=== PATIENT | male | born 1955 | race Caucasian/White ===

== ENCOUNTER 2017-12-08 21:24 | Inpatient (IN) | payer MEDICARE, OTHER ==
[~2017-12-08] VITALS: Ht 190.5 cm; Wt 179.9 kg
[2017-12-08] MEDS ORDERED: ASPIRIN 325 MG TABLET ONE (21:41)
[2017-12-08] MEDS ORDERED: SODIUM CHLORIDE 0.9% 500ML 500 ML IV ONE (21:44)
[2017-12-08 21:46] LABS: HEMATOCRIT 45.8 % (42-54); MEAN CORPUSCULAR HEMOGLOBIN 28.4 pg (27.0-33.0); MEAN CORPUSCULAR VOLUME 86.1 fL (79-99); NUCLEATED RED BLOOD CELLS 0.1 % (0.0-0.19); PLATELET COUNT (AUTO) 126 K/uL (130-400); RED BLOOD CELL COUNT(AUTO) 5.32 MIL/uL (4.50-6.20); RED CELL DISTRIBUTION WIDTH 14.3 % (11.0-15.5); WHITE BLOOD COUNT (AUTO) 17.4 K/uL (4.8-10.8)
[2017-12-08 21:57] LABS: CREATININE 0.9 mg/dL (0.5-1.5); INR 0.96 (0.85-1.15); PARTIAL THROMBOPLASTIN TIME 23.8 SEC (26.3-35.5); POTASSIUM 4.5 mmol/L (3.5-5.1); PROTHROMBIN TIME 10.1 SEC (9.6-11.6)
[2017-12-08] MEDS ORDERED: ACETAMINOPHEN EXTRA STRENGTH 500 MG TABLET ONE (21:59)
[2017-12-08] MEDS ORDERED: ZOSYN 3.375GM+NS 50ML 50 ML IV ONE (22:02)
[2017-12-08 22:11] LABS: ALBUMIN 3.3 g/dL (3.5-5.0); BILIRUBIN,TOTAL 0.5 mg/dL (0.2-1.0); CREATINE KINASE MB 0.9 ng/mL (0.5-3.6); TOTAL PROTEIN, SERUM 7.6 g/dL (6.0-8.3)
[2017-12-08 22:26] LABS: BAND NEUTROPHILS % (MANUAL) 4 % (0-2); EOSINOPHILS % (MANUAL) 2 % (1-6); LYMPHOCYTES % (MANUAL) 2 % (22-44); MAN.DIFF COMMENT-IMPRESSION MANUAL DIFFERENTIAL; MONOCYTES % (MANUAL) 5 % (2-9); SEGMENTED NEUTROPHILS % 87 % (40-70)
[2017-12-08 22:27] LABS: PLATELET MORPHOLOGY COMMENT SLIGHTLY DECREASED
[2017-12-08 22:51] LABS: BILIRUBIN,URINE Negative (NEGATIVE); COLOR,URINE Yellow (YELLOW); GLUCOSE, URINE (UA) Negative (NEGATIVE); KETONES,URINE Negative (NEGATIVE); LEUKOCYTE ESTERASE ,URINE Negative (NEGATIVE); NITRATE,URINE Negative (NEGATIVE); OCCULT BLOOD,URINE Negative (NEGATIVE); PH,URINE 5.5 (5.0-8.0); PROTEIN,URINE Negative (NEGATIVE)
[2017-12-08 22:52] LABS: APPEARANCE,URINE CLEAR (CLEAR)
[2017-12-09] MEDS ORDERED: VANCOMYCIN 1GM+NS 250ML 250 ML IV ONE (00:07)
[2017-12-09] MEDS ORDERED: SODIUM CHLORIDE 0.9% 500ML 500 ML IV ONE (00:22)
[2017-12-09] MEDS ORDERED: IPRATROPIUM/ALBUTEROL SULFATE 3 ML SOLUTION IH ONE ×5 (01:35→14:23)
[2017-12-09] MEDS ORDERED: LISI1TAB11 PO (02:30)
[2017-12-09] MEDS ORDERED: AMLO10TA2 PO (02:30)
[2017-12-09] MEDS ORDERED: ATOR10 PO (02:30)
[2017-12-09] MEDS ORDERED: METO-409 PO (02:30)
[2017-12-09 03:18] LABS: HEMATOCRIT 43.9 % (42-54); MEAN CORPUSCULAR HEMOGLOBIN 28.6 pg (27.0-33.0); MEAN CORPUSCULAR VOLUME 86.6 fL (79-99); NUCLEATED RED BLOOD CELLS 0.1 % (0.0-0.19); PLATELET COUNT (AUTO) 122 K/uL (130-400); RED BLOOD CELL COUNT(AUTO) 5.07 MIL/uL (4.50-6.20); WHITE BLOOD COUNT (AUTO) 19.9 K/uL (4.8-10.8)
[2017-12-09 03:28] LABS: POTASSIUM 3.5 mmol/L (3.5-5.1)
[2017-12-09 03:34] LABS: ALBUMIN 3.1 g/dL (3.5-5.0); BILIRUBIN,TOTAL 0.6 mg/dL (0.2-1.0)
[2017-12-09 03:40] LABS: B-TYPE NATRIURETIC PEPTIDE 259 pg/mL (0-100)
[2017-12-09 04:00] VITALS: BP 156/67
[2017-12-09] MEDS ORDERED: VANCOMYCIN PROTOCOL PER PHARMACY IV SCH ×2 (04:00→06:15)
[2017-12-09] MEDS ORDERED: VANCOMYCIN 500MG+NS 100ML 100 ML IV SCH (04:00)
[2017-12-09] MEDS ORDERED: PHARMACY COMMUNICATION MISC SCH (04:00)
[2017-12-09] MEDS ORDERED: VANCOMYCIN 1GM+NS 250ML 250 ML IV SCH ×2 (04:00→07:50)
[2017-12-09] MEDS: ACETAMINOPHEN 325 MG TAB PO PRN (04:22)
[2017-12-09] MEDS: ZOSYN 3.375GM+NS 50ML 50 ML IV SCH ×3 (04:22→20:31)
[2017-12-09] MEDS: FUROSEMIDE 10 MG/ML 4ML VIAL IVP SCH ×2 (06:14→20:32)
[2017-12-09 08:00] VITALS: BP 115/59
[2017-12-09] MEDS ORDERED: COMPOUND IV REFRIGERATED 1 EACH IVSOLN MISC PRN (08:00)
[2017-12-09] MEDS: FAMOTIDINE 20MG TAB 20 MG TAB PO SCH ×2 (08:53→20:29)
[2017-12-09 11:00] VITALS: BP 144/70
[2017-12-09 16:00] VITALS: BP 161/70
[2017-12-09] MEDS: IPRATROPIUM/ALBUTEROL SULFATE 3 ML SOLUTION IH SCH ×2 (18:06→21:56)
[2017-12-09 19:45] VITALS: BP 145/76
[2017-12-09] MEDS: FLUCONAZOLE 100 MG TAB PO SCH (20:29)
[2017-12-09] MEDS: VANCOMYCIN 2 GM in SODIUM CHLORIDE 0.9% 500ML 500 ML IV SCH (20:31)
[2017-12-09 23:44] VITALS: BP 153/101
[2017-12-10] MEDS: IPRATROPIUM/ALBUTEROL SULFATE 3 ML SOLUTION IH SCH ×6 (01:22→21:12)
[2017-12-10 03:15] VITALS: BP 149/122
[2017-12-10] MEDS: FUROSEMIDE 10 MG/ML 4ML VIAL IVP SCH ×2 (06:44→18:15)
[2017-12-10] MEDS: ZOSYN 3.375GM+NS 50ML 50 ML IV SCH ×3 (06:44→21:35)
[2017-12-10] MEDS: VANCOMYCIN 2 GM in SODIUM CHLORIDE 0.9% 500ML 500 ML IV SCH ×3 (06:44→21:35)
[2017-12-10 07:58] VITALS: BP 149/99
[2017-12-10] MEDS: FAMOTIDINE 20MG TAB 20 MG TAB PO SCH ×2 (09:38→21:34)
[2017-12-10 09:57] LABS: CREATININE 1.1 mg/dL (0.5-1.5); POTASSIUM 3.3 mmol/L (3.5-5.1)
[2017-12-10 12:00] VITALS: BP 119/64
[2017-12-10 16:00] VITALS: BP 156/80
[2017-12-10] MEDS: ACETAMINOPHEN 325 MG TAB PO PRN (18:19)
[2017-12-10] MEDS: FLUCONAZOLE 100 MG TAB PO SCH (18:19)
[2017-12-10 19:42] VITALS: BP 109/58
[2017-12-10] MEDS ORDERED: POTASSIUM CHLORIDE 20 MEQ ERTAB PO PRN (20:15)
[2017-12-10] MEDS ORDERED: POTASSIUM CHLORIDE 10% ELIXIR 20 MEQ/15 ML UDCUP PO PRN ×2 (20:15)
[2017-12-10] MEDS ORDERED: POTASSIUM CHLORIDE 20MEQ/100ML 100 ML IV PRN (20:15)
[2017-12-10] MEDS ORDERED: LIDOCAINE HCL-MPF 1% 2ML VIAL IVP PRN (20:15)
[2017-12-10] MEDS: ATORVASTATIN CALCIUM 10 MG TABLET PO SCH (21:34)
[2017-12-10] MEDS: METOPROLOL TARTRATE 50 MG TAB PO SCH (21:34)
[2017-12-10] MEDS: LISINOPRIL 20 MG TABLET PO SCH (21:34)
[2017-12-10 23:08] VITALS: BP 109/79
[2017-12-11] MEDS: IPRATROPIUM/ALBUTEROL SULFATE 3 ML SOLUTION IH SCH ×6 (01:25→21:39)
[2017-12-11 03:52] VITALS: BP 118/70
[2017-12-11] MEDS: FUROSEMIDE 10 MG/ML 4ML VIAL IVP SCH ×2 (05:30→18:22)
[2017-12-11] MEDS: POTASSIUM CHLORIDE 20 MEQ ERTAB PO PRN ×2 (05:32→18:33)
[2017-12-11] MEDS: VANCOMYCIN 2 GM in SODIUM CHLORIDE 0.9% 500ML 500 ML IV SCH ×2 (05:32→15:11)
[2017-12-11] MEDS: ZOSYN 3.375GM+NS 50ML 50 ML IV SCH ×3 (05:32→20:49)
[2017-12-11 08:00] VITALS: BP 152/87
[2017-12-11] MEDS: HYDROCHLOROTHIAZIDE 25 MG TABLET PO SCH ×2 (09:08→23:50)
[2017-12-11] MEDS: LISINOPRIL 20 MG TABLET PO SCH ×2 (09:08→23:50)
[2017-12-11] MEDS: AMLODIPINE BESYLATE 5 MG TAB PO SCH (09:08)
[2017-12-11] MEDS: METOPROLOL TARTRATE 50 MG TAB PO SCH ×2 (09:08→20:49)
[2017-12-11] MEDS: FAMOTIDINE 20MG TAB 20 MG TAB PO SCH ×2 (09:08→20:49)
[2017-12-11] MEDS: ENOXAPARIN SODIUM 40 MG/0.4 ML SYRINGE SQ SCH (09:09)
[2017-12-11 11:36] VITALS: BP 118/66
[2017-12-11 16:00] VITALS: BP 130/71
[2017-12-11] MEDS: FLUCONAZOLE 100 MG TAB PO SCH (18:22)
[2017-12-11 20:00] VITALS: BP 121/73
[2017-12-11] MEDS: ATORVASTATIN CALCIUM 10 MG TABLET PO SCH (20:49)
[2017-12-11 23:47] VITALS: BP 90/49
[2017-12-12] MEDS: VANCOMYCIN 2 GM in SODIUM CHLORIDE 0.9% 500ML 500 ML IV SCH ×2 (00:24→06:00)
[2017-12-12] MEDS: IPRATROPIUM/ALBUTEROL SULFATE 3 ML SOLUTION IH SCH ×3 (02:43→10:11)
[2017-12-12 03:39] VITALS: BP 158/76
[2017-12-12 04:30] LABS: HEMATOCRIT 39.1 % (42-54); MEAN CORPUSCULAR HEMOGLOBIN 28.4 pg (27.0-33.0); MEAN CORPUSCULAR HGB CONC 33.1 g/dL (32.0-36.0); MEAN CORPUSCULAR VOLUME 85.8 fL (79-99); PLATELET COUNT (AUTO) 114 K/uL (130-400); RED BLOOD CELL COUNT(AUTO) 4.56 MIL/uL (4.50-6.20); RED CELL DISTRIBUTION WIDTH 14.3 % (11.0-15.5); WHITE BLOOD COUNT (AUTO) 11.1 K/uL (4.8-10.8)
[2017-12-12 04:39] LABS: BAND NEUTROPHILS % (MANUAL) 15 % (0-2); LYMPHOCYTES % (MANUAL) 11 % (22-44); MAN.DIFF COMMENT-IMPRESSION MANUAL DIFFERENTIAL; MONOCYTES % (MANUAL) 9 % (2-9); PLATELET MORPHOLOGY COMMENT MARKED DECREASED; SEGMENTED NEUTROPHILS % 65 % (40-70)
[2017-12-12] MEDS: ZOSYN 3.375GM+NS 50ML 50 ML IV SCH (04:43)
[2017-12-12] MEDS: FUROSEMIDE 10 MG/ML 4ML VIAL IVP SCH ×2 (05:03→18:25)
[2017-12-12] MEDS: ACETAMINOPHEN 325 MG TAB PO PRN (06:34)
[2017-12-12 08:00] VITALS: BP 146/85
[2017-12-12] MEDS: POTASSIUM CHLORIDE 20 MEQ ERTAB PO PRN (08:02)
[2017-12-12] MEDS: METOPROLOL TARTRATE 50 MG TAB PO SCH ×2 (10:17→21:00)
[2017-12-12] MEDS: LISINOPRIL 20 MG TABLET PO SCH ×2 (10:17→21:00)
[2017-12-12] MEDS: FAMOTIDINE 20MG TAB 20 MG TAB PO SCH ×2 (10:17→21:39)
[2017-12-12] MEDS: AMLODIPINE BESYLATE 5 MG TAB PO SCH (10:17)
[2017-12-12] MEDS: HYDROCHLOROTHIAZIDE 25 MG TABLET PO SCH ×2 (10:18→21:00)
[2017-12-12] MEDS: ENOXAPARIN SODIUM 40 MG/0.4 ML SYRINGE SQ SCH (10:19)
[2017-12-12 11:21] VITALS: BP 128/71
[2017-12-12] MEDS ORDERED: CEFAZOLIN 2GM / 50 ML 50 ML IV SCH (11:30)
[2017-12-12] MEDS: CEFAZOLIN SODIUM 1 GM VIAL IVP SCH ×2 (13:31→21:40)
[2017-12-12 16:00] VITALS: BP_SYST 133; BP_SYST 143; BP_DIAS 76; BP_DIAS 89
[2017-12-12] MEDS ORDERED: IPRATROPIUM/ALBUTEROL SULFATE 3 ML SOLUTION IH PRN (16:00)
[2017-12-12] MEDS: FLUCONAZOLE 100 MG TAB PO SCH (18:25)
[2017-12-12 20:00] VITALS: BP 144/81
[2017-12-12] MEDS ORDERED: HONEY 1 APPL/ML TUBE TP SCH (20:00)
[2017-12-12] MEDS: ATORVASTATIN CALCIUM 10 MG TABLET PO SCH (21:39)
[2017-12-13] VITALS: BP 146/91
[2017-12-13 04:00] VITALS: BP 133/77
[2017-12-13] MEDS: CEFAZOLIN SODIUM 1 GM VIAL IVP SCH ×3 (06:48→22:41)
[2017-12-13] MEDS: FUROSEMIDE 10 MG/ML 4ML VIAL IVP SCH ×2 (06:48→18:37)
[2017-12-13] MEDS: METOPROLOL TARTRATE 50 MG TAB PO SCH ×2 (07:05→22:41)
[2017-12-13 09:11] VITALS: BP 136/84
[2017-12-13] MEDS: LISINOPRIL 20 MG TABLET PO SCH ×2 (09:12→22:41)
[2017-12-13] MEDS: AMLODIPINE BESYLATE 5 MG TAB PO SCH (09:12)
[2017-12-13] MEDS: FAMOTIDINE 20MG TAB 20 MG TAB PO SCH ×2 (09:12→22:41)
[2017-12-13] MEDS: HYDROCHLOROTHIAZIDE 25 MG TABLET PO SCH ×2 (09:12→22:42)
[2017-12-13] MEDS: ENOXAPARIN SODIUM 40 MG/0.4 ML SYRINGE SQ SCH (09:13)
[2017-12-13 11:44] VITALS: BP 150/84
[2017-12-13 15:34] VITALS: BP 125/72
[2017-12-13] MEDS: FLUCONAZOLE 100 MG TAB PO SCH (18:37)
[2017-12-13 19:00] VITALS: BP 122/87
[2017-12-13 20:54] LABS: MAGNESIUM 1.9 mg/dL (1.80-2.40)
[2017-12-13 21:02] LABS: POTASSIUM 2.5 mmol/L (3.5-5.1)
[2017-12-13] MEDS ORDERED: MAGNESIUM 2GM PREMIX 50ML 50 ML IV PRN (22:15)
[2017-12-13] MEDS: ATORVASTATIN CALCIUM 10 MG TABLET PO SCH (22:42)
[2017-12-13] MEDS: POTASSIUM CHLORIDE 20 MEQ ERTAB PO PRN (22:42)
[2017-12-13] MEDS: ACETAMINOPHEN 325 MG TAB PO PRN (22:47)
[2017-12-14] VITALS (7 sets, daily range): BP systolic 128–152; BP diastolic 71–91
[2017-12-14] MEDS: POTASSIUM CHLORIDE 20MEQ/100ML 100 ML IV PRN ×3 (00:27→23:20)
[2017-12-14] MEDS: LIDOCAINE HCL-MPF 1% 2ML VIAL IVP PRN ×3 (00:28→23:19)
[2017-12-14] MEDS: POTASSIUM CHLORIDE 20 MEQ ERTAB PO PRN ×6 (00:29→23:19)
[2017-12-14] MEDS ORDERED: METOPROLOL TARTRATE 1 MG/ML 5ML VIAL IV PRN (00:30)
[2017-12-14] MEDS: FUROSEMIDE 10 MG/ML 4ML VIAL IVP SCH ×2 (06:00→17:50)
[2017-12-14 06:06] LABS: CREATININE 1.3 mg/dL (0.5-1.5); MAGNESIUM 2.5 mg/dL (1.80-2.40)
[2017-12-14 06:09] LABS: POTASSIUM 2.7 mmol/L (3.5-5.1)
[2017-12-14] MEDS: CEFAZOLIN SODIUM 1 GM VIAL IVP SCH ×3 (06:33→23:17)
[2017-12-14] MEDS: HYDROCHLOROTHIAZIDE 25 MG TABLET PO SCH ×2 (08:24→23:18)
[2017-12-14] MEDS: METOPROLOL TARTRATE 50 MG TAB PO SCH ×2 (08:24→23:22)
[2017-12-14] MEDS: AMLODIPINE BESYLATE 5 MG TAB PO SCH (08:25)
[2017-12-14] MEDS: LISINOPRIL 20 MG TABLET PO SCH ×2 (08:25→23:18)
[2017-12-14] MEDS: FAMOTIDINE 20MG TAB 20 MG TAB PO SCH ×2 (08:25→23:18)
[2017-12-14] MEDS: ENOXAPARIN SODIUM 40 MG/0.4 ML SYRINGE SQ SCH (08:26)
[2017-12-14] MEDS: HONEY 1 APPL/ML TUBE TP SCH (09:00)
[2017-12-14] MEDS: FLUCONAZOLE 100 MG TAB PO SCH (17:51)
[2017-12-14] MEDS: ATORVASTATIN CALCIUM 10 MG TABLET PO SCH (23:17)
[2017-12-15 03:00] VITALS: BP 118/68
[2017-12-15] MEDS: FUROSEMIDE 10 MG/ML 4ML VIAL IVP SCH (06:00)
[2017-12-15] MEDS: CEFAZOLIN SODIUM 1 GM VIAL IVP SCH ×3 (06:57→22:00)
[2017-12-15 08:00] VITALS: BP 123/82
[2017-12-15] MEDS: METOPROLOL TARTRATE 50 MG TAB PO SCH ×2 (08:00→21:00)
[2017-12-15] MEDS: LISINOPRIL 20 MG TABLET PO SCH ×2 (08:00→21:00)
[2017-12-15] MEDS: FAMOTIDINE 20MG TAB 20 MG TAB PO SCH ×2 (08:00→21:00)
[2017-12-15] MEDS: AMLODIPINE BESYLATE 5 MG TAB PO SCH (08:00)
[2017-12-15] MEDS: HYDROCHLOROTHIAZIDE 25 MG TABLET PO SCH ×2 (08:00→21:00)
[2017-12-15] MEDS: POTASSIUM CHLORIDE 20 MEQ ERTAB PO PRN ×2 (08:01→12:15)
[2017-12-15] MEDS: ENOXAPARIN SODIUM 40 MG/0.4 ML SYRINGE SQ SCH (08:03)
[2017-12-15 11:34] VITALS: BP 120/72
[2017-12-15] MEDS: FUROSEMIDE 40 MG TABLET PO SCH (15:47)
[2017-12-15 16:00] VITALS: BP 111/57
[2017-12-15] MEDS: FLUCONAZOLE 100 MG TAB PO SCH (19:30)
[2017-12-15] MEDS: HONEY 1 APPL/ML TUBE TP SCH (19:31)
[2017-12-15 19:40] VITALS: BP 148/92
[2017-12-15] MEDS: ATORVASTATIN CALCIUM 10 MG TABLET PO SCH (21:00)
[2017-12-15 23:33] VITALS: BP 159/89
[2017-12-16 04:22] VITALS: BP 132/75
[2017-12-16 04:42] LABS: HEMATOCRIT 40.8 % (42-54); MEAN CORPUSCULAR HEMOGLOBIN 28.7 pg (27.0-33.0); MEAN CORPUSCULAR HGB CONC 33.4 g/dL (32.0-36.0); MEAN CORPUSCULAR VOLUME 85.9 fL (79-99); PLATELET COUNT (AUTO) 214 K/uL (130-400); RED BLOOD CELL COUNT(AUTO) 4.75 MIL/uL (4.50-6.20); RED CELL DISTRIBUTION WIDTH 14.4 % (11.0-15.5); WHITE BLOOD COUNT (AUTO) 8.5 K/uL (4.8-10.8)
[2017-12-16 04:58] LABS: ALBUMIN 2.3 g/dL (3.5-5.0); BILIRUBIN,TOTAL 0.5 mg/dL (0.2-1.0); CREATININE 1.2 mg/dL (0.5-1.5); MAGNESIUM 2.1 mg/dL (1.80-2.40); POTASSIUM 3.1 mmol/L (3.5-5.1); TOTAL PROTEIN, SERUM 7.3 g/dL (6.0-8.3)
[2017-12-16] MEDS: CEFAZOLIN SODIUM 1 GM VIAL IVP SCH ×3 (06:47→22:40)
[2017-12-16] MEDS: POTASSIUM CHLORIDE 20 MEQ ERTAB PO PRN ×3 (06:48→12:46)
[2017-12-16 08:00] VITALS: BP 128/70
[2017-12-16] MEDS: METOPROLOL TARTRATE 50 MG TAB PO SCH ×2 (09:45→22:40)
[2017-12-16] MEDS: AMLODIPINE BESYLATE 5 MG TAB PO SCH (09:45)
[2017-12-16] MEDS: LISINOPRIL 20 MG TABLET PO SCH ×2 (09:45→22:41)
[2017-12-16] MEDS: FAMOTIDINE 20MG TAB 20 MG TAB PO SCH ×2 (09:45→22:40)
[2017-12-16] MEDS: HYDROCHLOROTHIAZIDE 25 MG TABLET PO SCH ×2 (09:46→22:40)
[2017-12-16] MEDS: FUROSEMIDE 40 MG TABLET PO SCH ×2 (09:46→17:04)
[2017-12-16] MEDS: ENOXAPARIN SODIUM 40 MG/0.4 ML SYRINGE SQ SCH (09:47)
[2017-12-16] MEDS: HONEY 1 APPL/ML TUBE TP SCH (09:55)
[2017-12-16 12:00] VITALS: BP 117/73
[2017-12-16 16:00] VITALS: BP_SYST 134; BP_SYST 144; BP_DIAS 62; BP_DIAS 86
[2017-12-16] MEDS ORDERED: POTASSIUM CHLORIDE 20 MEQ ERTAB PO SCH (16:00)
[2017-12-16] MEDS: FLUCONAZOLE 100 MG TAB PO SCH (17:04)
[2017-12-16] MEDS: POTASSIUM CHLORIDE 20 MEQ ERTAB PO SCH (17:04)
[2017-12-16 20:00] VITALS: BP 144/90
[2017-12-16] MEDS: ATORVASTATIN CALCIUM 10 MG TABLET PO SCH (22:40)
[2017-12-17] VITALS (7 sets, daily range): BP systolic 98–134; BP diastolic 67–92
[2017-12-17 05:03] LABS: CREATININE 1.2 mg/dL (0.5-1.5); POTASSIUM 3.6 mmol/L (3.5-5.1)
[2017-12-17] MEDS: CEFAZOLIN SODIUM 1 GM VIAL IVP SCH ×3 (06:17→22:27)
[2017-12-17] MEDS: HYDROCHLOROTHIAZIDE 25 MG TABLET PO SCH ×2 (09:24→22:28)
[2017-12-17] MEDS: FUROSEMIDE 40 MG TABLET PO SCH ×2 (09:25→17:09)
[2017-12-17] MEDS: HONEY 1 APPL/ML TUBE TP SCH (09:25)
[2017-12-17] MEDS: FAMOTIDINE 20MG TAB 20 MG TAB PO SCH ×2 (09:26→22:27)
[2017-12-17] MEDS: POTASSIUM CHLORIDE 20 MEQ ERTAB PO SCH ×2 (09:26→22:28)
[2017-12-17] MEDS: METOPROLOL TARTRATE 50 MG TAB PO SCH ×2 (09:27→22:27)
[2017-12-17] MEDS: AMLODIPINE BESYLATE 5 MG TAB PO SCH (09:27)
[2017-12-17] MEDS: LISINOPRIL 20 MG TABLET PO SCH ×2 (09:27→22:27)
[2017-12-17] MEDS: ENOXAPARIN SODIUM 40 MG/0.4 ML SYRINGE SQ SCH (09:29)
[2017-12-17] MEDS: FLUCONAZOLE 100 MG TAB PO SCH (17:09)
[2017-12-17] MEDS: ATORVASTATIN CALCIUM 10 MG TABLET PO SCH (22:27)
[2017-12-18 04:00] VITALS: BP 134/78
[2017-12-18] MEDS: CEFAZOLIN SODIUM 1 GM VIAL IVP SCH ×3 (06:56→22:03)
[2017-12-18 08:04] VITALS: BP 122/72
[2017-12-18] MEDS: HYDROCHLOROTHIAZIDE 25 MG TABLET PO SCH ×2 (10:20→20:22)
[2017-12-18] MEDS: FAMOTIDINE 20MG TAB 20 MG TAB PO SCH ×2 (10:21→20:22)
[2017-12-18] MEDS: AMLODIPINE BESYLATE 5 MG TAB PO SCH (10:21)
[2017-12-18] MEDS: POTASSIUM CHLORIDE 20 MEQ ERTAB PO SCH ×2 (10:21→20:23)
[2017-12-18] MEDS: ENOXAPARIN SODIUM 40 MG/0.4 ML SYRINGE SQ SCH (10:22)
[2017-12-18] MEDS: FUROSEMIDE 40 MG TABLET PO SCH ×2 (10:22→17:27)
[2017-12-18] MEDS: LISINOPRIL 20 MG TABLET PO SCH ×2 (10:22→20:22)
[2017-12-18] MEDS: METOPROLOL TARTRATE 50 MG TAB PO SCH ×2 (10:24→20:22)
[2017-12-18] MEDS: HONEY 1 APPL/ML TUBE TP SCH (10:34)
[2017-12-18 11:30] VITALS: BP 131/85
[2017-12-18 16:49] VITALS: BP 121/73
[2017-12-18] MEDS: FLUCONAZOLE 100 MG TAB PO SCH (17:27)
[2017-12-18 19:00] VITALS: BP 132/83
[2017-12-18] MEDS: ATORVASTATIN CALCIUM 10 MG TABLET PO SCH (20:22)
[2017-12-18 23:00] VITALS: BP 137/71
[2017-12-19 03:00] VITALS: BP 110/36
[2017-12-19 04:39] LABS: CREATININE 1.2 mg/dL (0.5-1.5); POTASSIUM 4.4 mmol/L (3.5-5.1)
[2017-12-19] MEDS: CEFAZOLIN SODIUM 1 GM VIAL IVP SCH ×2 (05:16→13:46)
[2017-12-19 08:19] VITALS: BP 106/52
[2017-12-19] MEDS: ENOXAPARIN SODIUM 40 MG/0.4 ML SYRINGE SQ SCH (10:53)
[2017-12-19] MEDS: HYDROCHLOROTHIAZIDE 25 MG TABLET PO SCH ×2 (10:53→23:01)
[2017-12-19] MEDS: LISINOPRIL 20 MG TABLET PO SCH ×2 (10:55→23:03)
[2017-12-19] MEDS: METOPROLOL TARTRATE 50 MG TAB PO SCH ×2 (10:55→23:02)
[2017-12-19] MEDS: FUROSEMIDE 40 MG TABLET PO SCH ×2 (10:55→18:41)
[2017-12-19] MEDS: FAMOTIDINE 20MG TAB 20 MG TAB PO SCH ×2 (10:55→23:03)
[2017-12-19] MEDS: AMLODIPINE BESYLATE 5 MG TAB PO SCH (10:55)
[2017-12-19] MEDS: HONEY 1 APPL/ML TUBE TP SCH (11:05)
[2017-12-19] MEDS: POTASSIUM CHLORIDE 20 MEQ ERTAB PO SCH ×2 (11:06→23:02)
[2017-12-19 11:33] VITALS: BP 106/57
[2017-12-19 15:51] VITALS: BP 124/67
[2017-12-19] MEDS: FLUCONAZOLE 100 MG TAB PO SCH (18:41)
[2017-12-19 19:00] VITALS: BP 116/59
[2017-12-19 23:00] VITALS: BP 123/66
[2017-12-19] MEDS: ATORVASTATIN CALCIUM 10 MG TABLET PO SCH (23:02)
[2017-12-20 03:00] VITALS: BP 134/72
[2017-12-20] MEDS: CEFAZOLIN SODIUM 1 GM VIAL IVP SCH ×4 (05:59→21:38)
[2017-12-20 06:15] LABS: BASOPHILS % (AUTO) 0.9 % (0.0-5.0); EOSINOPHILS % (AUTO) 3.5 % (0.0-8.0); HEMATOCRIT 41.1 % (42-54); LYMPHOCYTES % (AUTO) 18.3 % (21.0-51.0); MEAN CORPUSCULAR HEMOGLOBIN 28.6 pg (27.0-33.0); MEAN CORPUSCULAR HGB CONC 33.2 g/dL (32.0-36.0); MEAN CORPUSCULAR VOLUME 85.9 fL (79-99); MONOCYTES % (AUTO) 10.9 % (3.0-13.0); NEUTROPHILS % (AUTO) 66.4 % (40.0-77.0); PLATELET COUNT (AUTO) 248 K/uL (130-400); RED BLOOD CELL COUNT(AUTO) 4.78 MIL/uL (4.50-6.20); RED CELL DISTRIBUTION WIDTH 14.3 % (11.0-15.5); WHITE BLOOD COUNT (AUTO) 7.2 K/uL (4.8-10.8)
[2017-12-20 06:25] LABS: CREATININE 1.3 mg/dL (0.5-1.5); MAGNESIUM 2.3 mg/dL (1.80-2.40); POTASSIUM 4.5 mmol/L (3.5-5.1)
[2017-12-20 08:00] VITALS: BP 118/69
[2017-12-20] MEDS: FAMOTIDINE 20MG TAB 20 MG TAB PO SCH ×2 (09:38→21:39)
[2017-12-20] MEDS: METOPROLOL TARTRATE 50 MG TAB PO SCH ×2 (09:39→21:00)
[2017-12-20] MEDS: POTASSIUM CHLORIDE 20 MEQ ERTAB PO SCH ×2 (09:40→21:40)
[2017-12-20] MEDS: FUROSEMIDE 40 MG TABLET PO SCH ×2 (09:40→17:28)
[2017-12-20] MEDS: LISINOPRIL 20 MG TABLET PO SCH ×2 (09:42→21:39)
[2017-12-20] MEDS: AMLODIPINE BESYLATE 5 MG TAB PO SCH (09:42)
[2017-12-20] MEDS: HYDROCHLOROTHIAZIDE 25 MG TABLET PO SCH ×2 (09:45→21:00)
[2017-12-20] MEDS: ENOXAPARIN SODIUM 40 MG/0.4 ML SYRINGE SQ SCH (09:45)
[2017-12-20] MEDS: HONEY 1 APPL/ML TUBE TP SCH (09:51)
[2017-12-20 11:00] VITALS: BP 110/72
[2017-12-20 16:00] VITALS: BP 144/57
[2017-12-20] MEDS: FLUCONAZOLE 100 MG TAB PO SCH (17:28)
[2017-12-20 20:00] VITALS: BP 118/70
[2017-12-20] MEDS: ATORVASTATIN CALCIUM 10 MG TABLET PO SCH (21:39)
[2017-12-20 23:30] VITALS: BP 136/76
[2017-12-21 03:12] VITALS: BP 106/69
[2017-12-21] MEDS: CEFAZOLIN SODIUM 1 GM VIAL IVP SCH ×3 (06:55→23:01)
[2017-12-21 07:08] LABS: BASOPHILS % (AUTO) 0.7 % (0.0-5.0); EOSINOPHILS % (AUTO) 3.2 % (0.0-8.0); HEMATOCRIT 42.1 % (42-54); LYMPHOCYTES % (AUTO) 15.3 % (21.0-51.0); MEAN CORPUSCULAR HEMOGLOBIN 28.6 pg (27.0-33.0); MEAN CORPUSCULAR HGB CONC 33.4 g/dL (32.0-36.0); MEAN CORPUSCULAR VOLUME 85.6 fL (79-99); MONOCYTES % (AUTO) 8.3 % (3.0-13.0); NEUTROPHILS % (AUTO) 72.5 % (40.0-77.0); NUCLEATED RED BLOOD CELLS 0.1 % (0.0-0.19); PLATELET COUNT (AUTO) 274 K/uL (130-400); RED BLOOD CELL COUNT(AUTO) 4.92 MIL/uL (4.50-6.20); RED CELL DISTRIBUTION WIDTH 14.5 % (11.0-15.5); WHITE BLOOD COUNT (AUTO) 7.4 K/uL (4.8-10.8)
[2017-12-21 07:52] LABS: CREATININE 1.3 mg/dL (0.5-1.5); POTASSIUM 4.6 mmol/L (3.5-5.1)
[2017-12-21 08:00] VITALS: BP 124/57
[2017-12-21] MEDS: LISINOPRIL 20 MG TABLET PO SCH ×2 (09:00→23:00)
[2017-12-21 11:34] VITALS: BP 112/70
[2017-12-21] MEDS: HYDROCHLOROTHIAZIDE 25 MG TABLET PO SCH ×2 (13:15→21:00)
[2017-12-21] MEDS: POTASSIUM CHLORIDE 20 MEQ ERTAB PO SCH ×2 (13:16→23:00)
[2017-12-21] MEDS: FAMOTIDINE 20MG TAB 20 MG TAB PO SCH ×2 (13:16→23:01)
[2017-12-21] MEDS: FUROSEMIDE 40 MG TABLET PO SCH ×2 (13:17→18:59)
[2017-12-21] MEDS: AMLODIPINE BESYLATE 5 MG TAB PO SCH (13:17)
[2017-12-21] MEDS: METOPROLOL TARTRATE 50 MG TAB PO SCH ×2 (13:17→21:00)
[2017-12-21] MEDS: ENOXAPARIN SODIUM 40 MG/0.4 ML SYRINGE SQ SCH (13:20)
[2017-12-21] MEDS: HONEY 1 APPL/ML TUBE TP SCH (13:20)
[2017-12-21 16:00] VITALS: BP 104/51
[2017-12-21] MEDS: FLUCONAZOLE 100 MG TAB PO SCH (18:59)
[2017-12-21 19:00] VITALS: BP 112/62
[2017-12-21 23:00] VITALS: BP 133/67
[2017-12-21] MEDS: ATORVASTATIN CALCIUM 10 MG TABLET PO SCH (23:00)
[2017-12-21] MEDS: ACETAMINOPHEN 325 MG TAB PO PRN (23:02)
[2017-12-22 03:00] VITALS: BP 131/92
[2017-12-22 04:49] LABS: HEMATOCRIT 39.8 % (42-54); LYMPHOCYTES % (AUTO) 21.9 % (21.0-51.0); MEAN CORPUSCULAR HEMOGLOBIN 28.5 pg (27.0-33.0); MEAN CORPUSCULAR HGB CONC 33.3 g/dL (32.0-36.0); MEAN CORPUSCULAR VOLUME 85.7 fL (79-99); MONOCYTES % (AUTO) 11.3 % (3.0-13.0); NEUTROPHILS % (AUTO) 62.8 % (40.0-77.0); PLATELET COUNT (AUTO) 253 K/uL (130-400); RED BLOOD CELL COUNT(AUTO) 4.65 MIL/uL (4.50-6.20); RED CELL DISTRIBUTION WIDTH 14.2 % (11.0-15.5); WHITE BLOOD COUNT (AUTO) 6.9 K/uL (4.8-10.8)
[2017-12-22 05:02] LABS: CREATININE 1.5 mg/dL (0.5-1.5); POTASSIUM 4.5 mmol/L (3.5-5.1)
[2017-12-22] MEDS: CEFAZOLIN SODIUM 1 GM VIAL IVP SCH ×2 (06:43→16:07)
[2017-12-22 08:00] VITALS: BP 108/65
[2017-12-22] MEDS: LISINOPRIL 20 MG TABLET PO SCH (09:00)
[2017-12-22] MEDS: AMLODIPINE BESYLATE 5 MG TAB PO SCH (09:00)
[2017-12-22] MEDS: HYDROCHLOROTHIAZIDE 25 MG TABLET PO SCH (11:16)
[2017-12-22] MEDS: FUROSEMIDE 40 MG TABLET PO SCH ×2 (11:20→16:07)
[2017-12-22] MEDS: FAMOTIDINE 20MG TAB 20 MG TAB PO SCH (11:22)
[2017-12-22] MEDS: ENOXAPARIN SODIUM 40 MG/0.4 ML SYRINGE SQ SCH (11:30)
[2017-12-22] MEDS: HONEY 1 APPL/ML TUBE TP SCH (11:31)
[2017-12-22] MEDS: METOPROLOL TARTRATE 50 MG TAB PO SCH (11:45)
[2017-12-22] MEDS: POTASSIUM CHLORIDE 20 MEQ ERTAB PO SCH (11:46)
[2017-12-22 12:00] VITALS: BP 120/82
[2017-12-22 16:00] VITALS: BP 129/68
[2017-12-22] MEDS: FLUCONAZOLE 100 MG TAB PO SCH (16:08)
== END 2017-12-22 19:05 | DRG 871 ==
LOC: EDH 21:24 → EDHIP 23:54 → 3BH 12-09 02:06
PROVIDERS: ADMIT Internal Medicine Nephrology; ATTEND Internal Medicine Nephrology
DX: A41.9 Sepsis, unspecified organism (principal); I50.33 Acute on chronic diastolic (congestive) heart failure; E66.01 Morbid (severe) obesity due to excess calories; D69.6 Thrombocytopenia, unspecified; Z68.42 Body mass index [BMI] 45.0-49.9, adult; L03.116 Cellulitis of left lower limb; B35.9 Dermatophytosis, unspecified; I11.0 Hypertensive heart disease with heart failure; I89.0 Lymphedema, not elsewhere classified; B95.61 Methicillin susceptible Staphylococcus aureus infection as the cause of diseases classified elsewhere; B96.89 Other specified bacterial agents as the cause of diseases classified elsewhere; E78.5 Hyperlipidemia, unspecified; E87.6 Hypokalemia; I25.10 Atherosclerotic heart disease of native coronary artery without angina pectoris; B96.4 Proteus (mirabilis) (morganii) as the cause of diseases classified elsewhere; B95.4 Other streptococcus as the cause of diseases classified elsewhere; I87.2 Venous insufficiency (chronic) (peripheral); S80.822A Blister (nonthermal), left lower leg, initial encounter; X58.XXXA Exposure to other specified factors, initial encounter; Y93.89 Activity, other specified; Y92.89 Other specified places as the place of occurrence of the external cause; Y99.8 Other external cause status; Z91.19 Patient's noncompliance with other medical treatment and regimen; Z95.1 Presence of aortocoronary bypass graft; Z87.891 Personal history of nicotine dependence; Z86.73 Personal history of transient ischemic attack (TIA), and cerebral infarction without residual deficits; Z83.3 Family history of diabetes mellitus; Z82.49 Family history of ischemic heart disease and other diseases of the circulatory system
CPT/HCPCS: 36415; 71045; 80048; 80053; 80202; 81003; 82550; 82553; 83605; 83735; 83874; 83880; 84132; 84484; 85025; 85027; 85610; 85651; 85730; 87040; 87070; 87076; 87077; 87088; 87186; 87804; 93005; 93970; 94640; 94664; A4218; J0690; J1650; J1940; J2543; J3370; J3475; J3480; J3490; J7040

== ENCOUNTER 2020-10-19 11:33 | Emergency (ER) | payer MEDICARE ==
[~2020-10-19 11:33] MED LIST: AMLO-258 PO; ATOR10 PO; CLIN300C10 PO; HYDR25TA PO; METO-409 PO
[2020-10-19 12:49] LABS: BASOPHILS % (AUTO) 0.5 % (0.0-5.0); EOSINOPHILS % (AUTO) 5.8 % (0.0-8.0); HEMATOCRIT 46.6 % (42-54); LYMPHOCYTES % (AUTO) 6.8 % (21.0-51.0); MEAN CORPUSCULAR HEMOGLOBIN 26.2 pg (27.0-33.0); MEAN CORPUSCULAR HGB CONC 30.3 g/dL (32.0-36.0); MEAN CORPUSCULAR VOLUME 86.6 fL (79-99); MONOCYTES % (AUTO) 7.1 % (3.0-13.0); NEUTROPHILS % (AUTO) 79.5 % (40.0-77.0); PLATELET COUNT (AUTO) 177 K/uL (130-400); RED BLOOD CELL COUNT(AUTO) 5.38 MIL/uL (4.50-6.20); RED CELL DISTRIBUTION WIDTH 14.6 % (11.0-15.5); WHITE BLOOD COUNT (AUTO) 8.8 K/uL (4.8-10.8)
[2020-10-19 13:06] LABS: CREATININE 1.1 mg/dL (0.5-1.5); POTASSIUM 3.8 mmol/L (3.5-5.1)
[2020-10-19 13:11] LABS: B-TYPE NATRIURETIC PEPTIDE 86 pg/mL (0-100)
[2020-10-19 13:13] LABS: ALBUMIN 3.1 g/dL (3.5-5.0); BILIRUBIN,TOTAL 0.6 mg/dL (0.2-1.0); TOTAL PROTEIN, SERUM 7.8 g/dL (6.0-8.3)
[2020-10-19] MEDS ORDERED: KETOROLAC TROMETHAMINE 30MG/ML ONE (14:18)
== END 2020-10-19 14:53 | disposition home or self-care (01) ==
LOC: EDH 11:33
DX: M79.672 Pain in left foot (principal); M79.671 Pain in right foot; R60.0 Localized edema; J44.9 Chronic obstructive pulmonary disease, unspecified; I10 Essential (primary) hypertension
CPT/HCPCS: 36415; 71045; 73630 ×2; 80053; 83880; 84484; 85025; 93005; 96374; 99285; J1885

== ENCOUNTER 2020-10-27 04:24 | Inpatient (IN) | payer MEDICARE ==
[~2020-10-27] VITALS: Ht 190.5 cm; Wt 216.2 kg
[2020-10-27] VITALS (24 sets, daily range): BP systolic 96–141; BP diastolic 38–85
[~2020-10-27 04:24] MED LIST changes: +CLIN-141 PO; -CLIN300C10 PO
[2020-10-27 04:47] LABS: BASOPHILS % (AUTO) 0.3 % (0.0-5.0); EOSINOPHILS % (AUTO) 0.2 % (0.0-8.0); HEMATOCRIT 42.2 % (42-54); LYMPHOCYTES % (AUTO) 1.8 % (21.0-51.0); MEAN CORPUSCULAR HEMOGLOBIN 26.5 pg (27.0-33.0); MEAN CORPUSCULAR VOLUME 85.3 fL (79-99); NEUTROPHILS % (AUTO) 90.9 % (40.0-77.0); PLATELET COUNT (AUTO) 153 K/uL (130-400); RED BLOOD CELL COUNT(AUTO) 4.95 MIL/uL (4.50-6.20); RED CELL DISTRIBUTION WIDTH 14.6 % (11.0-15.5)
[2020-10-27] MEDS ORDERED: IBUPROFEN 600 MG TABLET ONE (04:51)
[2020-10-27 04:56] LABS: CARBON DIOXIDE 28 mmol/L (21-32); CHLORIDE 100 mmol/L (101-111); CREATININE 1.2 mg/dL (0.5-1.5); GLOMERULAR FILTR. RATE CALC 64 mL/min (>60); GLUCOSE,RANDOM 157 mg/dL (70-105); POTASSIUM 4.4 mmol/L (3.5-5.1); SODIUM SERUM 138 mmol/L (136-145); UREA NITROGEN, BLOOD 18 mg/dL (7-18)
[2020-10-27 05:01] LABS: INR 1.1 (0.85-1.15); PROTHROMBIN TIME 11.9 SEC (9.6-11.6)
[2020-10-27 05:02] LABS: PARTIAL THROMBOPLASTIN TIME 27.6 SEC (26.3-35.5)
[2020-10-27 05:27] LABS: ALANINE AMINOTRANSFERASE 16 U/L (12-78); ALBUMIN 2.8 g/dL (3.5-5.0); ASPARTATE AMINOTRANSFERASE 18 U/L (10-37); BILIRUBIN,TOTAL 0.4 mg/dL (0.2-1.0); CREATINE KINASE, TOTAL 78 U/L (21-232); MYOGLOBIN 240 ng/mL (10-92); TOTAL PROTEIN, SERUM 6.9 g/dL (6.0-8.3); TROPONIN I < 0.04 ng/mL (0.00-0.06)
[2020-10-27] MEDS ORDERED: VANCOMYCIN 1G/250ML KIT 250 ML IV ONE ×2 (05:28→15:37)
[2020-10-27] MEDS ORDERED: GENTAMICIN SULFATE 80 MG/2 ML VIAL ONE (05:28)
[2020-10-27] MEDS ORDERED: 0.9%NACL 100ML 100 ML IV ONE (05:29)
[2020-10-27] MEDS ORDERED: VANCOMYCIN PROTOCOL PER PHARMACY IV SCH (08:15)
[2020-10-27 08:35] LABS: APPEARANCE,URINE Clear (CLEAR); BILIRUBIN,URINE Negative (NEGATIVE); COLOR,URINE Dark Yellow (YELLOW); GLUCOSE, URINE (UA) Negative (NEGATIVE); KETONES,URINE Trace mg/dL (NEGATIVE); LEUKOCYTE ESTERASE ,URINE Trace (NEGATIVE); NITRATE,URINE Negative (NEGATIVE); OCCULT BLOOD,URINE Negative (NEGATIVE); PROTEIN,URINE POS 1+ mg/dL (NEGATIVE)
[2020-10-27] MEDS: ASPIRIN 81MG CHEW TAB PO SCH (09:00)
[2020-10-27 09:04] LABS: RBC,URINE 0-1 /HPF (0-1)
[2020-10-27 09:05] LABS: BACTERIA,URINE Few /HPF (None Seen); SQUAMOUS EPITHELIAL CELL,UR Rare /HPF (0-2)
[2020-10-27] MEDS ORDERED: NOREPINEPHRIN 4MG/NS 250ML 250 ML IV PRN (11:00)
[2020-10-27] MEDS ORDERED: ACETAMINOPHEN 650 MG SUPPOSITORY RC PRN (11:00)
[2020-10-27] MEDS ORDERED: ONDANSETRON 4MG INJ IVP PRN (11:00)
[2020-10-27] MEDS ORDERED: ACETAMINOPHEN 325 MG TAB PO PRN (11:00)
[2020-10-27 12:09] LABS: CREATINE KINASE, TOTAL 109 U/L (21-232); MYOGLOBIN 448 ng/mL (10-92); TROPONIN I < 0.04 ng/mL (0.00-0.06)
[2020-10-27] MEDS ORDERED: ZOSYN 3.375GM+NS 50ML 50 ML IV ONE (12:31)
[2020-10-27 12:43] LABS: HEMOGLOBIN A1C 7.1 % (4.0-6.0)
[2020-10-27] MEDS ORDERED: PHARMACY COMMUNICATION MISC SCH (12:45)
[2020-10-27] MEDS ORDERED: COMPOUND IV REFRIGERATED 1 EACH IVSOLN MISC PRN (14:45)
[2020-10-27 15:47] LABS: CREATINE KINASE, TOTAL 159 U/L (21-232); MYOGLOBIN 344 ng/mL (10-92); TROPONIN I < 0.04 ng/mL (0.00-0.06)
[2020-10-27] MEDS: FLUCONAZOLE 400 MG/NS 200 ML 200 ML IV SCH (16:04)
[2020-10-27] MEDS: VANCOMYCIN 1G 1.75 GM in 0.9% NACL 250ML 250 ML IV SCH ×2 (16:04→20:08)
[2020-10-27] MEDS: ZOSYN 3.375GM+NS 50ML 50 ML IV SCH (20:48)
[2020-10-27 21:52] LABS: CREATINE KINASE, TOTAL 173 U/L (21-232); MYOGLOBIN 191 ng/mL (10-92); TROPONIN I < 0.04 ng/mL (0.00-0.06)
[2020-10-27] MEDS: FUROSEMIDE 20MG VIAL IV SCH (23:57)
[2020-10-28] VITALS (18 sets, daily range): BP systolic 99–147; BP diastolic 57–97
[2020-10-28 03:50] LABS: BASOPHILS % (AUTO) 0.3 % (0.0-5.0); EOSINOPHILS % (AUTO) 1.2 % (0.0-8.0); HEMATOCRIT 41.9 % (42-54); LYMPHOCYTES % (AUTO) 4.2 % (21.0-51.0); MEAN CORPUSCULAR HEMOGLOBIN 25.9 pg (27.0-33.0); MEAN CORPUSCULAR HGB CONC 29.6 g/dL (32.0-36.0); MEAN CORPUSCULAR VOLUME 87.5 fL (79-99); MONOCYTES % (AUTO) 7.3 % (3.0-13.0); NEUTROPHILS % (AUTO) 86.7 % (40.0-77.0); PLATELET COUNT (AUTO) 135 K/uL (130-400); RED BLOOD CELL COUNT(AUTO) 4.79 MIL/uL (4.50-6.20); RED CELL DISTRIBUTION WIDTH 15.1 % (11.0-15.5); WHITE BLOOD COUNT (AUTO) 11.8 K/uL (4.8-10.8)
[2020-10-28 04:03] LABS: CREATININE 1.2 mg/dL (0.5-1.5); PHOSPHORUS 3.5 mg/dL (2.5-4.9)
[2020-10-28] MEDS: ZOSYN 3.375GM+NS 50ML 50 ML IV SCH ×3 (04:56→21:36)
[2020-10-28] MEDS: VANCOMYCIN 1GM+NS 250ML IV SCH ×2 (06:07→16:57)
[2020-10-28] MEDS ORDERED: METOPROLOL TARTRATE 1 MG/ML 5ML VIAL IV PRN (07:15)
[2020-10-28] MEDS: ASPIRIN 81MG CHEW TAB PO SCH (08:20)
[2020-10-28] MEDS: METOPROLOL TARTRATE 50 MG TAB PO SCH ×2 (08:22→21:36)
[2020-10-28] MEDS: POLYETHYLENE GLYCOL 3350 17 GM POWD.PACK PO SCH (08:23)
[2020-10-28] MEDS ORDERED: ENOXAPARIN SODIUM 40 MG/0.4 ML SYRINGE SQ SCH (09:00)
[2020-10-28] MEDS ORDERED: ASPIRIN 81MG CHEW TAB PO SCH (09:00)
[2020-10-28] MEDS: FUROSEMIDE 20MG VIAL IV SCH ×2 (10:00→21:37)
[2020-10-28] MEDS: FLUCONAZOLE 400 MG/NS 200 ML 200 ML IV SCH (15:59)
[2020-10-28] MEDS: APIXABAN 5 MG TABLET PO SCH (21:36)
[2020-10-29] MEDS ORDERED: TEMAZEPAM 7.5 MG CAPSULE PO ONE (00:36)
[2020-10-29 04:00] VITALS: BP 160/82
[2020-10-29 05:02] LABS: HEMATOCRIT 42.6 % (42-54); MEAN CORPUSCULAR HEMOGLOBIN 26.5 pg (27.0-33.0); MEAN CORPUSCULAR HGB CONC 30.3 g/dL (32.0-36.0); MEAN CORPUSCULAR VOLUME 87.5 fL (79-99); PLATELET COUNT (AUTO) 127 K/uL (130-400); RED BLOOD CELL COUNT(AUTO) 4.87 MIL/uL (4.50-6.20); RED CELL DISTRIBUTION WIDTH 14.8 % (11.0-15.5); WHITE BLOOD COUNT (AUTO) 8.6 K/uL (4.8-10.8)
[2020-10-29] MEDS: ZOSYN 3.375GM+NS 50ML 50 ML IV SCH ×3 (05:21→21:28)
[2020-10-29 05:22] LABS: BASOPHILS % (AUTO) 0.5 % (0.0-5.0); EOSINOPHILS % (AUTO) 4.2 % (0.0-8.0); LYMPHOCYTES % (AUTO) 7.8 % (21.0-51.0); MONOCYTES % (AUTO) 9.6 % (3.0-13.0); NEUTROPHILS % (AUTO) 77.6 % (40.0-77.0)
[2020-10-29 05:30] LABS: CREATININE 0.9 mg/dL (0.5-1.5); POTASSIUM 3.8 mmol/L (3.5-5.1)
[2020-10-29 07:00] VITALS: BP 142/95
[2020-10-29] MEDS ORDERED: VANCOMYCIN 1G 1.75 GM in 0.9% NACL 250ML 250 ML IV SCH (09:31)
[2020-10-29] MEDS: APIXABAN 5 MG TABLET PO SCH ×2 (09:55→21:28)
[2020-10-29] MEDS: ASPIRIN 81MG CHEW TAB PO SCH (09:55)
[2020-10-29] MEDS: METOPROLOL TARTRATE 50 MG TAB PO SCH ×2 (09:56→21:28)
[2020-10-29] MEDS: FUROSEMIDE 20MG VIAL IV SCH ×2 (09:56→21:28)
[2020-10-29] MEDS: POLYETHYLENE GLYCOL 3350 17 GM POWD.PACK PO SCH (09:57)
[2020-10-29 11:00] VITALS: BP 155/88
[2020-10-29] MEDS: FLUCONAZOLE 400 MG/NS 200 ML 200 ML IV SCH (14:57)
[2020-10-29 16:00] VITALS: BP 162/96
[2020-10-29 17:22] LABS: ABG BASE EXCESS 4.3 mmol/L (-2.0-3.0); ABG HCO3 33.5 mmol/L (21.0-28.0); ABG OXYGEN SATURATION 92.6 % (95.0-99.0); ABG PCO2 73 mmHg (35-48)
[2020-10-29 19:19] VITALS: BP 155/94
[2020-10-29] MEDS: VANCOMYCIN 1G 1.25 GM in 0.9% NACL 250ML 250 ML IV SCH (22:00)
[2020-10-29 23:29] VITALS: BP 151/102
[2020-10-30] VITALS (30 sets, daily range): BP systolic 123–163; BP diastolic 72–116
[2020-10-30] MEDS: TEMAZEPAM 7.5 MG CAPSULE PO PRN ×2 (01:16→23:56)
[2020-10-30 01:27] LABS: ABG BASE EXCESS 3.5 mmol/L (-2.0-3.0); ABG HCO3 33.7 mmol/L (21.0-28.0); ABG PCO2 79 mmHg (35-48)
[2020-10-30 01:51] LABS: ABG BASE EXCESS 4.1 mmol/L (-2.0-3.0); ABG HCO3 34.3 mmol/L (21.0-28.0); ABG OXYGEN SATURATION 85.2 % (95.0-99.0); ABG PCO2 80 mmHg (35-48)
[2020-10-30] MEDS ORDERED: IPRATROPIUM/ALBUTEROL SULFATE 3 ML SOLUTION IH STA (02:20)
[2020-10-30] MEDS ORDERED: ZIPRASIDONE MESYLATE 20 MG/VIAL IM ONE (02:23)
[2020-10-30] MEDS ORDERED: IPRATROPIUM/ALBUTEROL SULFATE 3 ML SOLUTION IH ONE ×4 (02:35→11:20)
[2020-10-30] MEDS ORDERED: SOLU-MEDROL 125MG VIAL IVP STA (03:00)
[2020-10-30 04:44] LABS: BASOPHILS % (AUTO) 0.3 % (0.0-5.0); EOSINOPHILS % (AUTO) 0.3 % (0.0-8.0); HEMATOCRIT 46.9 % (42-54); LYMPHOCYTES % (AUTO) 5.1 % (21.0-51.0); MEAN CORPUSCULAR HEMOGLOBIN 26.3 pg (27.0-33.0); MEAN CORPUSCULAR HGB CONC 30.3 g/dL (32.0-36.0); MONOCYTES % (AUTO) 7.3 % (3.0-13.0); PLATELET COUNT (AUTO) 135 K/uL (130-400); RED BLOOD CELL COUNT(AUTO) 5.39 MIL/uL (4.50-6.20); RED CELL DISTRIBUTION WIDTH 14.4 % (11.0-15.5); WHITE BLOOD COUNT (AUTO) 11.3 K/uL (4.8-10.8)
[2020-10-30 04:52] LABS: CREATININE 0.9 mg/dL (0.5-1.5)
[2020-10-30 05:31] LABS: ABG OXYGEN SATURATION 95.4 % (95.0-99.0); ABG PCO2 78 mmHg (35-48)
[2020-10-30] MEDS: ZOSYN 3.375GM+NS 50ML 50 ML IV SCH ×3 (05:52→20:43)
[2020-10-30] MEDS: VANCOMYCIN 1G 1.25 GM in 0.9% NACL 250ML 250 ML IV SCH ×3 (07:45→22:08)
[2020-10-30] MEDS: METOPROLOL TARTRATE 50 MG TAB PO SCH ×2 (07:46→20:44)
[2020-10-30] MEDS: POLYETHYLENE GLYCOL 3350 17 GM POWD.PACK PO SCH (07:46)
[2020-10-30] MEDS: APIXABAN 5 MG TABLET PO SCH ×2 (07:46→20:44)
[2020-10-30] MEDS: FUROSEMIDE 20MG VIAL IV SCH ×2 (09:10→22:06)
[2020-10-30] MEDS: TRYPSIN/BALSAM PERU/CASTOR OIL OINT 60GM TUBE TP SCH ×2 (12:30→20:43)
[2020-10-30 12:55] LABS: ABG BASE EXCESS 5.2 mmol/L (-2.0-3.0); ABG HCO3 34.1 mmol/L (21.0-28.0); ABG OXYGEN SATURATION 92.4 % (95.0-99.0); ABG PCO2 70 mmHg (35-48)
[2020-10-30] MEDS: FLUCONAZOLE 400 MG/NS 200 ML 200 ML IV SCH (14:02)
[2020-10-30] MEDS ORDERED: PERFLUTREN PROTEIN-A MICROSPHR 0.22 MG/ML VIAL IV ONE (16:00)
[2020-10-31] VITALS (33 sets, daily range): BP systolic 99–162; BP diastolic 62–110
[2020-10-31 04:04] LABS: EOSINOPHILS % (AUTO) 2.6 % (0.0-8.0); LYMPHOCYTES % (AUTO) 6.8 % (21.0-51.0); MEAN CORPUSCULAR HEMOGLOBIN 25.7 pg (27.0-33.0); MEAN CORPUSCULAR HGB CONC 29.1 g/dL (32.0-36.0); MONOCYTES % (AUTO) 10.6 % (3.0-13.0); NEUTROPHILS % (AUTO) 79.1 % (40.0-77.0); PLATELET COUNT (AUTO) 146 K/uL (130-400); RED BLOOD CELL COUNT(AUTO) 5.34 MIL/uL (4.50-6.20); RED CELL DISTRIBUTION WIDTH 14.5 % (11.0-15.5); WHITE BLOOD COUNT (AUTO) 8.3 K/uL (4.8-10.8)
[2020-10-31 04:05] LABS: BASOPHILS % (AUTO) 0.2 % (0.0-5.0)
[2020-10-31 04:19] LABS: CREATININE 0.8 mg/dL (0.5-1.5); POTASSIUM 3.9 mmol/L (3.5-5.1)
[2020-10-31] MEDS: ZOSYN 3.375GM+NS 50ML 50 ML IV SCH ×3 (05:27→20:05)
[2020-10-31] MEDS: VANCOMYCIN 1G 1.25 GM in 0.9% NACL 250ML 250 ML IV SCH ×3 (05:36→22:32)
[2020-10-31] MEDS: POLYETHYLENE GLYCOL 3350 17 GM POWD.PACK PO SCH (10:07)
[2020-10-31] MEDS: FUROSEMIDE 20MG VIAL IV SCH (10:07)
[2020-10-31] MEDS: TRYPSIN/BALSAM PERU/CASTOR OIL OINT 60GM TUBE TP SCH ×2 (10:07→21:48)
[2020-10-31] MEDS: METOPROLOL TARTRATE 50 MG TAB PO SCH ×2 (10:07→20:18)
[2020-10-31] MEDS: APIXABAN 5 MG TABLET PO SCH ×2 (10:07→20:17)
[2020-10-31 12:06] LABS: ABG BASE EXCESS 6.8 mmol/L (-2.0-3.0); ABG HCO3 36.7 mmol/L (21.0-28.0); ABG OXYGEN SATURATION 93.7 % (95.0-99.0); ABG PCO2 78 mmHg (35-48)
[2020-10-31] MEDS ORDERED: FUROSEMIDE 20MG VIAL IV SCH (12:15)
[2020-10-31] MEDS ORDERED: 0.9%NACL 100ML 100 ML IV ONE (13:43)
[2020-10-31] MEDS: FLUCONAZOLE 400 MG/NS 200 ML 200 ML IV SCH (15:46)
[2020-10-31] MEDS: DEXMEDETOMIDINE HCL 400 MCG in 0.9%NACL 100ML 100 ML IV SCH ×3 (19:56→23:46)
[2020-10-31] MEDS: FUROSEMIDE 40MG VIAL IV SCH (20:05)
[2020-11-01] VITALS (24 sets, daily range): BP systolic 120–164; BP diastolic 75–109
[2020-11-01 01:25] LABS: ABG BASE EXCESS 9.6 mmol/L (-2.0-3.0); ABG HCO3 40.1 mmol/L (21.0-28.0); ABG OXYGEN SATURATION 94.8 % (95.0-99.0); ABG PCO2 87 mmHg (35-48)
[2020-11-01 01:28] LABS: ABG BASE EXCESS 8.3 mmol/L (-2.0-3.0); ABG OXYGEN SATURATION 95.1 % (95.0-99.0); ABG PCO2 79 mmHg (35-48)
[2020-11-01] MEDS: LORAZEPAM 2 MG/ML 1 ML VIAL IVP PRN ×3 (02:31→23:11)
[2020-11-01] MEDS: DEXMEDETOMIDINE HCL 400 MCG in 0.9%NACL 100ML 100 ML IV SCH ×4 (03:36→10:31)
[2020-11-01 03:42] LABS: HEMATOCRIT 46.6 % (42-54); MEAN CORPUSCULAR HEMOGLOBIN 25.9 pg (27.0-33.0); MEAN CORPUSCULAR HGB CONC 29.4 g/dL (32.0-36.0); MEAN CORPUSCULAR VOLUME 88.3 fL (79-99); PLATELET COUNT (AUTO) 140 K/uL (130-400); RED BLOOD CELL COUNT(AUTO) 5.28 MIL/uL (4.50-6.20); RED CELL DISTRIBUTION WIDTH 14.1 % (11.0-15.5); WHITE BLOOD COUNT (AUTO) 6.8 K/uL (4.8-10.8)
[2020-11-01 03:54] LABS: CREATININE 1.1 mg/dL (0.5-1.5); POTASSIUM 4.2 mmol/L (3.5-5.1)
[2020-11-01 04:30] LABS: LYMPHOCYTES % (MANUAL) 11 % (22-44); MAN.DIFF COMMENT-IMPRESSION MANUAL DIFFERENTIAL; MONOCYTES % (MANUAL) 12 % (2-9); SEGMENTED NEUTROPHILS % 77 % (40-70)
[2020-11-01 04:31] LABS: PLATELET MORPHOLOGY COMMENT SLIGHTLY DECREASED
[2020-11-01] MEDS ORDERED: PHARMACY COMMUNICATION MISC SCH (05:30)
[2020-11-01] MEDS: ZOSYN 3.375GM+NS 50ML 50 ML IV SCH ×3 (05:46→20:03)
[2020-11-01] MEDS: VANCOMYCIN 1G 1.25 GM in 0.9% NACL 250ML 250 ML IV SCH ×3 (08:43→21:13)
[2020-11-01] MEDS: POLYETHYLENE GLYCOL 3350 17 GM POWD.PACK PO SCH (09:00)
[2020-11-01] MEDS: FUROSEMIDE 40MG VIAL IV SCH ×2 (09:10→20:03)
[2020-11-01] MEDS: TRYPSIN/BALSAM PERU/CASTOR OIL OINT 60GM TUBE TP SCH ×2 (09:11→21:15)
[2020-11-01] MEDS: METOPROLOL TARTRATE 1 MG/ML 5ML VIAL IV SCH ×3 (09:30→21:14)
[2020-11-01] MEDS: APIXABAN 5 MG TABLET PO SCH ×2 (11:14→20:12)
[2020-11-01] MEDS: FLUCONAZOLE 400 MG/NS 200 ML 200 ML IV SCH (14:25)
[2020-11-01] MEDS: DEXMEDETOMIDINE HCL 1,000 MCG in 0.9% NACL 250ML 250 ML IV SCH (16:39)
[2020-11-02] VITALS (27 sets, daily range): BP systolic 128–170; BP diastolic 84–119
[2020-11-02] MEDS: DEXMEDETOMIDINE HCL 1,000 MCG in 0.9% NACL 250ML 250 ML IV SCH ×2 (01:36→13:03)
[2020-11-02] MEDS: METOPROLOL TARTRATE 1 MG/ML 5ML VIAL IV SCH ×4 (01:43→21:31)
[2020-11-02 05:16] LABS: BASOPHILS % (AUTO) 0.5 % (0.0-5.0); EOSINOPHILS % (AUTO) 1.2 % (0.0-8.0); HEMATOCRIT 44.5 % (42-54); LYMPHOCYTES % (AUTO) 9.2 % (21.0-51.0); MEAN CORPUSCULAR HEMOGLOBIN 25.7 pg (27.0-33.0); MEAN CORPUSCULAR HGB CONC 28.5 g/dL (32.0-36.0); MEAN CORPUSCULAR VOLUME 90.1 fL (79-99); NEUTROPHILS % (AUTO) 77.3 % (40.0-77.0); PLATELET COUNT (AUTO) 161 K/uL (130-400); RED BLOOD CELL COUNT(AUTO) 4.94 MIL/uL (4.50-6.20); RED CELL DISTRIBUTION WIDTH 14.4 % (11.0-15.5); WHITE BLOOD COUNT (AUTO) 7.5 K/uL (4.8-10.8)
[2020-11-02] MEDS: ZOSYN 3.375GM+NS 50ML 50 ML IV SCH ×3 (05:19→21:29)
[2020-11-02 05:38] LABS: CREATININE 0.9 mg/dL (0.5-1.5); MAGNESIUM 2.2 mg/dL (1.80-2.40); POTASSIUM 3.9 mmol/L (3.5-5.1)
[2020-11-02] MEDS: VANCOMYCIN 1G 1.25 GM in 0.9% NACL 250ML 250 ML IV SCH ×3 (05:45→21:38)
[2020-11-02] MEDS: FUROSEMIDE 40MG VIAL IV SCH ×2 (08:35→21:29)
[2020-11-02] MEDS: POLYETHYLENE GLYCOL 3350 17 GM POWD.PACK PO SCH (08:35)
[2020-11-02] MEDS: TRYPSIN/BALSAM PERU/CASTOR OIL OINT 60GM TUBE TP SCH ×2 (08:35→21:30)
[2020-11-02] MEDS: APIXABAN 5 MG TABLET PO SCH ×2 (09:00→21:30)
[2020-11-02] MEDS ORDERED: PHARMACY COMMUNICATION MISC SCH (11:00)
[2020-11-02] MEDS: LORAZEPAM 2 MG/ML 1 ML VIAL IVP PRN ×4 (13:14→23:20)
[2020-11-02 14:50] LABS: ABG BASE EXCESS 13.2 mmol/L (-2.0-3.0); ABG OXYGEN SATURATION 91.9 % (95.0-99.0); ABG PCO2 89 mmHg (35-48)
[2020-11-02] MEDS: FLUCONAZOLE 400 MG/NS 200 ML 200 ML IV SCH (15:44)
[2020-11-03] VITALS (43 sets, daily range): BP systolic 124–164; BP diastolic 68–97
[2020-11-03 03:53] LABS: ABG BASE EXCESS 16.3 mmol/L (-2.0-3.0); ABG HCO3 47.5 mmol/L (21.0-28.0); ABG OXYGEN SATURATION 90.8 % (95.0-99.0); ABG PCO2 93 mmHg (35-48)
[2020-11-03 04:00] LABS: BASOPHILS % (AUTO) 0.4 % (0.0-5.0); EOSINOPHILS % (AUTO) 0.6 % (0.0-8.0); HEMATOCRIT 44.5 % (42-54); LYMPHOCYTES % (AUTO) 8.5 % (21.0-51.0); MEAN CORPUSCULAR HEMOGLOBIN 26.2 pg (27.0-33.0); MEAN CORPUSCULAR HGB CONC 29.2 g/dL (32.0-36.0); MEAN CORPUSCULAR VOLUME 89.5 fL (79-99); MONOCYTES % (AUTO) 10.1 % (3.0-13.0); NEUTROPHILS % (AUTO) 79.7 % (40.0-77.0); PLATELET COUNT (AUTO) 147 K/uL (130-400); RED BLOOD CELL COUNT(AUTO) 4.97 MIL/uL (4.50-6.20); RED CELL DISTRIBUTION WIDTH 14.3 % (11.0-15.5)
[2020-11-03 04:15] LABS: ALBUMIN 2.1 g/dL (3.5-5.0); BILIRUBIN,TOTAL 0.5 mg/dL (0.2-1.0); CREATININE 0.9 mg/dL (0.5-1.5); POTASSIUM 3.4 mmol/L (3.5-5.1); TOTAL PROTEIN, SERUM 6.3 g/dL (6.0-8.3)
[2020-11-03 04:22] LABS: B-TYPE NATRIURETIC PEPTIDE 531 pg/mL (0-100)
[2020-11-03] MEDS: METOPROLOL TARTRATE 1 MG/ML 5ML VIAL IV SCH ×4 (04:24→22:16)
[2020-11-03] MEDS: ZOSYN 3.375GM+NS 50ML 50 ML IV SCH ×3 (04:24→21:13)
[2020-11-03] MEDS ORDERED: POTASSIUM CHLORIDE 20MEQ/100ML 100 ML IV ONE (05:25)
[2020-11-03] MEDS: VANCOMYCIN 1G 1.25 GM in 0.9% NACL 250ML 250 ML IV SCH (05:41)
[2020-11-03] MEDS: APIXABAN 5 MG TABLET PO SCH ×2 (09:00→21:03)
[2020-11-03] MEDS: POLYETHYLENE GLYCOL 3350 17 GM POWD.PACK PO SCH (09:00)
[2020-11-03] MEDS: TRYPSIN/BALSAM PERU/CASTOR OIL OINT 60GM TUBE TP SCH ×2 (09:52→21:13)
[2020-11-03] MEDS: FUROSEMIDE 40MG VIAL IV SCH ×2 (10:10→21:13)
[2020-11-03] MEDS: DEXMEDETOMIDINE HCL 1,000 MCG in 0.9% NACL 250ML 250 ML IV SCH ×2 (13:04→21:17)
[2020-11-03 15:05] LABS: ABG BASE EXCESS 11.8 mmol/L (-2.0-3.0); ABG HCO3 40.7 mmol/L (21.0-28.0); ABG OXYGEN SATURATION 94.5 % (95.0-99.0); ABG PCO2 74 mmHg (35-48)
[2020-11-03] MEDS: FLUCONAZOLE 400 MG/NS 200 ML 200 ML IV SCH (16:10)
[2020-11-03] MEDS: LORAZEPAM 2 MG/ML 1 ML VIAL IVP PRN (18:34)
[2020-11-04] VITALS (25 sets, daily range): BP systolic 126–181; BP diastolic 55–108
[2020-11-04] MEDS: DEXMEDETOMIDINE HCL 1,000 MCG in 0.9% NACL 250ML 250 ML IV SCH ×2 (01:41→06:43)
[2020-11-04] MEDS: LORAZEPAM 2 MG/ML 1 ML VIAL IVP PRN (02:08)
[2020-11-04] MEDS: METOPROLOL TARTRATE 1 MG/ML 5ML VIAL IV SCH ×4 (02:59→20:43)
[2020-11-04 03:44] LABS: ABG BASE EXCESS 17.6 mmol/L (-2.0-3.0); ABG HCO3 47.8 mmol/L (21.0-28.0); ABG OXYGEN SATURATION 93.5 % (95.0-99.0); ABG PCO2 84 mmHg (35-48)
[2020-11-04] MEDS: ZOSYN 3.375GM+NS 50ML 50 ML IV SCH ×3 (04:11→20:41)
[2020-11-04 04:33] LABS: CREATININE 0.8 mg/dL (0.5-1.5); POTASSIUM 3.3 mmol/L (3.5-5.1)
[2020-11-04] MEDS: POTASSIUM CHLORIDE 20MEQ/100ML 100 ML IV PRN ×2 (04:58→06:42)
[2020-11-04] MEDS: FUROSEMIDE 40MG VIAL IV SCH ×2 (08:22→20:40)
[2020-11-04] MEDS: POLYETHYLENE GLYCOL 3350 17 GM POWD.PACK PO SCH (08:23)
[2020-11-04] MEDS: APIXABAN 5 MG TABLET PO SCH ×2 (08:38→19:29)
[2020-11-04] MEDS: TRYPSIN/BALSAM PERU/CASTOR OIL OINT 60GM TUBE TP SCH ×2 (08:39→20:42)
[2020-11-04] MEDS: VANCOMYCIN 1G 2 GM in 0.9% NACL 500ML IV.SOLN 500 ML IV SCH ×2 (09:26→20:41)
[2020-11-04 10:30] LABS: ABG BASE EXCESS 20.8 mmol/L (-2.0-3.0); ABG HCO3 49.8 mmol/L (21.0-28.0); ABG OXYGEN SATURATION 93.2 % (95.0-99.0); ABG PCO2 74 mmHg (35-48)
[2020-11-04] MEDS: FLUCONAZOLE 400 MG/NS 200 ML 200 ML IV SCH (16:31)
[2020-11-04] MEDS ORDERED: AMLODIPINE 5 MG TAB PO SCH (19:00)
[2020-11-04] MEDS ORDERED: AMLODIPINE 5 MG TAB ONE (19:16)
[2020-11-04] MEDS ORDERED: **HM**MELATONIN 5MG PO PRN (21:00)
[2020-11-04] MEDS: TEMAZEPAM 7.5 MG CAPSULE PO PRN (22:40)
[2020-11-05] VITALS (18 sets, daily range): BP systolic 131–155; BP diastolic 74–108
[2020-11-05] MEDS: LORAZEPAM 2 MG/ML 1 ML VIAL IVP PRN (01:55)
[2020-11-05] MEDS: METOPROLOL TARTRATE 1 MG/ML 5ML VIAL IV SCH ×2 (02:52→08:46)
[2020-11-05 04:00] LABS: ABG HCO3 48.3 mmol/L (21.0-28.0); ABG PCO2 70 mmHg (35-48)
[2020-11-05] MEDS: ZOSYN 3.375GM+NS 50ML 50 ML IV SCH ×2 (04:17→12:03)
[2020-11-05 04:27] LABS: MEAN CORPUSCULAR HEMOGLOBIN 25.4 pg (27.0-33.0); MEAN CORPUSCULAR HGB CONC 28.9 g/dL (32.0-36.0); MEAN CORPUSCULAR VOLUME 87.9 fL (79-99); RED BLOOD CELL COUNT(AUTO) 5.35 MIL/uL (4.50-6.20); RED CELL DISTRIBUTION WIDTH 14.9 % (11.0-15.5); WHITE BLOOD COUNT (AUTO) 8.6 K/uL (4.8-10.8)
[2020-11-05 04:42] LABS: ALBUMIN 2.3 g/dL (3.5-5.0); CREATININE 0.7 mg/dL (0.5-1.5); MAGNESIUM 2.6 mg/dL (1.80-2.40); TOTAL PROTEIN, SERUM 6.5 g/dL (6.0-8.3)
[2020-11-05 04:52] LABS: POTASSIUM 2.7 mmol/L (3.5-5.1)
[2020-11-05] MEDS: POTASSIUM CHLORIDE 20MEQ/100ML 100 ML IV PRN ×3 (04:56→12:03)
[2020-11-05] MEDS ORDERED: POTASSIUM CHLORIDE 10% ELIXIR 20 MEQ/15 ML UDCUP PO SCH (05:30)
[2020-11-05] MEDS: POLYETHYLENE GLYCOL 3350 17 GM POWD.PACK PO SCH (08:37)
[2020-11-05] MEDS: APIXABAN 5 MG TABLET PO SCH (08:38)
[2020-11-05] MEDS: FUROSEMIDE 40MG VIAL IV SCH (08:38)
[2020-11-05] MEDS: VANCOMYCIN 1G 2 GM in 0.9% NACL 500ML IV.SOLN 500 ML IV SCH (08:44)
[2020-11-05] MEDS: TRYPSIN/BALSAM PERU/CASTOR OIL OINT 60GM TUBE TP SCH (08:51)
[2020-11-05] MEDS ORDERED: METOPROLOL TARTRATE 25 MG TAB PO SCH (14:00)
[2020-11-05] MEDS: FLUCONAZOLE 400 MG/NS 200 ML 200 ML IV SCH (14:19)
[2020-12-08] MEDS ORDERED: NYST30C TP (00:25)
[2020-12-08] MEDS ORDERED: POTA-79 PO (00:25)
[2020-12-08] MEDS ORDERED: ACID1TAB8 PO (00:25)
[2020-12-08] MEDS ORDERED: BIOTENE PO (00:25)
[2020-12-08] MEDS ORDERED: FURO40TA7 PO (00:25)
[2020-12-08] MEDS ORDERED: BALS60OI TP (00:25)
[2020-12-08] MEDS ORDERED: OMEG-148 PO (00:25)
[2020-12-08] MEDS ORDERED: lidocaine patch TP (00:25)
[2020-12-08] MEDS ORDERED: METO-472 PO (00:25)
[2020-12-08] MEDS ORDERED: APIX5TAB PO (00:25)
[2020-12-08] MEDS ORDERED: TRAM50TA2 PO (00:25)
[2020-12-08] MEDS ORDERED: PANT40TA PO (00:25)
[2020-12-08] MEDS ORDERED: LOSA25TA2 PO (00:25)
[2020-12-08] MEDS ORDERED: PETR113O TP (00:25)
[2020-12-08] MEDS ORDERED: GABA300C PO (00:25)
[2020-12-17] MEDS ORDERED: APIX5TAB PO (14:08)
[2020-12-17] MEDS ORDERED: GABA300C PO (14:08)
== END 2020-11-05 19:03 | DRG 871 ==
LOC: EDH 04:24 → EDHIP 08:01 → 2CH 09:10 → 4AH 10-28 16:55 → 4CH 10-29 02:42 → 4AH 10-30 05:53 → 2CH 10-30 07:19 → 2DH 11-02 09:07
PROVIDERS: ADMIT Internal Medicine; ATTEND Internal Medicine
PROC: 5A09357 Assistance with Respiratory Ventilation, Less than 24 Consecutive Hours, Continuous Positive Airway Pressure (ICD-10-PCS; 2020-10-29)
PROC: 5A09357 Assistance with Respiratory Ventilation, Less than 24 Consecutive Hours, Continuous Positive Airway Pressure (ICD-10-PCS; 2020-10-30)
PROC: 5A09357 Assistance with Respiratory Ventilation, Less than 24 Consecutive Hours, Continuous Positive Airway Pressure (ICD-10-PCS; 2020-10-31)
PROC: 5A09557 Assistance with Respiratory Ventilation, Greater than 96 Consecutive Hours, Continuous Positive Airway Pressure (ICD-10-PCS; principal; 2020-11-01)
PROC: 5A09357 Assistance with Respiratory Ventilation, Less than 24 Consecutive Hours, Continuous Positive Airway Pressure (ICD-10-PCS; 2020-11-05)
DX: A41.9 Sepsis, unspecified organism (principal); R65.21 Severe sepsis with septic shock; G93.41 Metabolic encephalopathy; I50.33 Acute on chronic diastolic (congestive) heart failure; J96.21 Acute and chronic respiratory failure with hypoxia; J96.22 Acute and chronic respiratory failure with hypercapnia; L03.116 Cellulitis of left lower limb; L03.115 Cellulitis of right lower limb; E66.2 Morbid (severe) obesity with alveolar hypoventilation; L97.919 Non-pressure chronic ulcer of unspecified part of right lower leg with unspecified severity; L97.929 Non-pressure chronic ulcer of unspecified part of left lower leg with unspecified severity; Z68.44 Body mass index [BMI] 60.0-69.9, adult; I48.0 Paroxysmal atrial fibrillation; D69.6 Thrombocytopenia, unspecified; E11.65 Type 2 diabetes mellitus with hyperglycemia; E78.5 Hyperlipidemia, unspecified; I11.0 Hypertensive heart disease with heart failure; I25.10 Atherosclerotic heart disease of native coronary artery without angina pectoris; I87.2 Venous insufficiency (chronic) (peripheral); I89.0 Lymphedema, not elsewhere classified; N19 Unspecified kidney failure; R53.81 Other malaise; Z20.822 Contact with and (suspected) exposure to COVID-19; N40.0 Benign prostatic hyperplasia without lower urinary tract symptoms; Z74.01 Bed confinement status; Z79.01 Long term (current) use of anticoagulants; Z79.899 Other long term (current) drug therapy; Z86.73 Personal history of transient ischemic attack (TIA), and cerebral infarction without residual deficits; Z87.891 Personal history of nicotine dependence; Z91.19 Patient's noncompliance with other medical treatment and regimen; Z95.1 Presence of aortocoronary bypass graft; Z79.2 Long term (current) use of antibiotics
CPT/HCPCS: 36415; 36600; 71045; 76882; 80048; 80053; 80061; 80202; 81001; 82140; 82435; 82550; 82803; 82947; 82948; 83036; 83605; 83735; 83874; 83880; 84100; 84132; 84145; 84295; 84484; 85018; 85025; 85027; 85378; 85610; 85730; 86900; 86901; 87040; 87088; 87426; 93005; 93925; 93970; 94640; 94660; 94664; A6250; C8929; G0378; J1450; J1580; J1650; J1940; J2060; J2543; J3370; J3480; J3486; J3490; J7040; J7050; U0003